=== PATIENT | female | born 1985 | race Caucasian/White ===

== ENCOUNTER → 2023-04-23 14:47 | Outpatient (REF) | payer BC, SELFPAY | LOC: PNTC 14:47 | PROVIDERS: ATTENDING PHYSICIAN Obstetrics & Gynecology | DX: Z36.0 Encounter for antenatal screening for chromosomal anomalies (principal); Z36.82 Encounter for antenatal screening for nuchal translucency | CPT/HCPCS: 76801; 76813 ==

== ENCOUNTER → 2023-05-15 13:59 | Outpatient (REF) | payer BC, SELFPAY | LOC: PNTC 13:59 | PROVIDERS: ATTENDING PHYSICIAN Obstetrics & Gynecology | DX: O99.210 Obesity complicating pregnancy, unspecified trimester (principal); O09.819 Supervision of pregnancy resulting from assisted reproductive technology, unspecified trimester | CPT/HCPCS: 76805 ==

== ENCOUNTER → 2023-06-11 15:13 | Outpatient (REF) | payer BC, SELFPAY | LOC: PNTC 15:13 | PROVIDERS: ATTENDING PHYSICIAN Obstetrics & Gynecology | DX: O99.210 Obesity complicating pregnancy, unspecified trimester (principal); O09.819 Supervision of pregnancy resulting from assisted reproductive technology, unspecified trimester | CPT/HCPCS: 76811 ==

== ENCOUNTER → 2023-07-09 13:28 | Outpatient (REF) | payer BC, SELFPAY | LOC: PNTC 13:28 | PROVIDERS: ATTENDING PHYSICIAN Obstetrics & Gynecology | DX: O99.210 Obesity complicating pregnancy, unspecified trimester (principal); O09.819 Supervision of pregnancy resulting from assisted reproductive technology, unspecified trimester | CPT/HCPCS: 76816 ==

== ENCOUNTER → 2023-07-31 15:18 | Outpatient (REF) | payer BC, SELFPAY | LOC: PNTC 15:18 | PROVIDERS: ATTENDING PHYSICIAN Obstetrics & Gynecology | DX: O36.0131 Maternal care for anti-D [Rh] antibodies, third trimester, fetus 1 (principal) | CPT/HCPCS: 36415; 86850; 86900; 86901; J2790 ==

== ENCOUNTER → 2023-08-05 13:47 | Outpatient (REF) | payer BC, SELFPAY | LOC: PNTC 13:47 | PROVIDERS: ATTENDING PHYSICIAN Obstetrics & Gynecology | DX: O09.529 Supervision of elderly multigravida, unspecified trimester (principal); O09.819 Supervision of pregnancy resulting from assisted reproductive technology, unspecified trimester | CPT/HCPCS: 76816 ==

== ENCOUNTER → 2023-09-02 15:02 | Outpatient (REF) | payer BC, SELFPAY | LOC: PNTC 15:02 | PROVIDERS: ATTENDING PHYSICIAN Obstetrics & Gynecology | DX: O09.529 Supervision of elderly multigravida, unspecified trimester (principal); O09.819 Supervision of pregnancy resulting from assisted reproductive technology, unspecified trimester | CPT/HCPCS: 76816 ==

== ENCOUNTER → 2023-09-16 16:06 | Outpatient (REF) | payer BC, SELFPAY | LOC: PNTC 16:06 | PROVIDERS: ATTENDING PHYSICIAN Obstetrics & Gynecology | DX: O09.529 Supervision of elderly multigravida, unspecified trimester (principal); O09.819 Supervision of pregnancy resulting from assisted reproductive technology, unspecified trimester | CPT/HCPCS: 76818 ==

== ENCOUNTER → 2023-09-23 15:05 | Outpatient (REF) | payer BC, SELFPAY | LOC: PNTC 15:05 | PROVIDERS: ATTENDING PHYSICIAN Obstetrics & Gynecology | DX: O09.529 Supervision of elderly multigravida, unspecified trimester (principal); O09.819 Supervision of pregnancy resulting from assisted reproductive technology, unspecified trimester | CPT/HCPCS: 59025 ==

== ENCOUNTER → 2023-09-30 14:21 | Outpatient (REF) | payer BC, SELFPAY | LOC: PNTC 14:21 | PROVIDERS: ATTENDING PHYSICIAN Obstetrics & Gynecology | DX: O09.519 Supervision of elderly primigravida, unspecified trimester (principal); O09.819 Supervision of pregnancy resulting from assisted reproductive technology, unspecified trimester; O99.210 Obesity complicating pregnancy, unspecified trimester | CPT/HCPCS: 59025; 76816 ==

== ENCOUNTER → 2023-10-07 15:05 | Outpatient (REF) | payer BC, SELFPAY | LOC: PNTC 15:05 | PROVIDERS: ATTENDING PHYSICIAN Obstetrics & Gynecology | DX: O09.519 Supervision of elderly primigravida, unspecified trimester (principal); O09.819 Supervision of pregnancy resulting from assisted reproductive technology, unspecified trimester | CPT/HCPCS: 59025; 76815 ==

== ENCOUNTER → 2023-10-14 16:52 | Outpatient (REF) | payer BC, SELFPAY | LOC: PNTC 16:52 | PROVIDERS: ATTENDING PHYSICIAN Obstetrics & Gynecology | DX: O09.529 Supervision of elderly multigravida, unspecified trimester (principal); O09.819 Supervision of pregnancy resulting from assisted reproductive technology, unspecified trimester | CPT/HCPCS: 59025 ==

== ENCOUNTER 2023-10-21 19:57 | Inpatient (IN) | payer BC, SELFPAY ==
[2023-10-21 20:08] VITALS: BMI 45.9
[2023-10-21] MEDS: LR 1000 IV (20:45)
[2023-10-21 21:13] LABS: % Basophils 0.1 % (0-2); % Eosinophils 1.7 % (0-6); % Immature Granulocytes 0.7 % (0-0.5); % Lymphocytes 13.2 % (20.5-51.1); % Monocytes 5.3 % (1.7-9.3); Absolute Eosinophils 0.2 10^3/uL (0-0.7); Absolute Immature Granulocytes 0.1 10^3/uL (0-0.05); Absolute Lymphocytes 1.3 10^3/uL (1.2-3.4); Absolute Monocytes 0.5 10^3/uL (0.1-0.6); Absolute Neutrophils 7.6 10^3/uL (1.4-6.5); Hematocrit 29.7 % (37.0-47.0); Hemoglobin 10.5 g/dL (12.0-16.0); Mean Corp Hgb Conc. 35.4 g/dL (33.0-37.0); Mean Corpuscular Hgb 30.3 pg (27.0-31.0); Mean Corpuscular Volume 85.8 fL (81.0-99.0); Mean Platelet Volume 10.9 fL (7.4-10.4); Nucleated Red Blood Cells % 0 %; Platelet Count 229 10^3/uL (130-400); Red Blood Cell Count 3.46 10^6/uL (4.20-5.40); Red Cell Dist. Width 15.2 % (11.5-14.5); White Blood Cell Count 9.6 10^3/uL (4.8-10.8)
[2023-10-21] MEDS: CYTOTEC 25 MICROGRAM VAG (21:19)
[2023-10-21 21:44] VITALS: BP 128/73
[2023-10-22] MEDS: CYTOTEC 50 MICROGRAM PO ×6 (00:53→21:42)
[2023-10-22] MEDS: SYNTHROID 50 MCG PO (06:15)
[2023-10-22] MEDS: MORPHINE SULFATE 2 MG IV ×2 (13:16→17:00)
[2023-10-23] MEDS: PITOCIN 30 UNITS/NSS 500 ML IV ×2 (01:31→21:28)
[2023-10-23] MEDS: LR 1000 IV ×3 (01:31→15:14)
[2023-10-23] MEDS: MORPHINE SULFATE 2 MG IV (02:49)
[2023-10-23] MEDS: FENTANYL/BUPIVACAINE 100 EPIDURAL ×2 (03:06→15:11)
[2023-10-23] MEDS: SUBLIMAZE 100 MCG EPIDURAL (03:06)
[2023-10-23] MEDS: SYNTHROID 50 MCG PO (06:15)
[2023-10-23] MEDS: TYLENOL 1000 MG PO (09:33)
[2023-10-23] MEDS: MOTRIN 600 MG PO (22:42)
[2023-10-24 04:30] LABS: Hematocrit 27.7 % (37.0-47.0); Hemoglobin 9.6 g/dL (12.0-16.0)
[2023-10-24] MEDS: SYNTHROID 50 MCG PO (06:13)
[2023-10-24] MEDS: MOTRIN 600 MG PO ×2 (07:36→18:27)
[2023-10-24] MEDS: FEOSOL 325 MG PO (07:37)
[2023-10-24] MEDS: PRENATAL PLUS 1 TABLET PO (07:37)
[2023-10-25] MEDS: MOTRIN 600 MG PO (04:37)
[2023-10-25] MEDS: SYNTHROID 50 MCG PO (06:13)
[2023-10-25] MEDS: FEOSOL 325 MG PO (09:19)
[2023-10-25] MEDS: SENOKOT-S 1 TABLET PO (09:19)
[2023-10-25] MEDS: PRENATAL PLUS 1 TABLET PO (09:19)
[2023-10-25 14:47] LABS: Syphilis/T. pallidum Ab Reflex Negative (Negative)
== END 2023-10-25 13:25 | disposition home or self-care (01) | DRG 807 ==
LOC: LDRP 19:57
PROVIDERS: Obstetrics & Gynecology; ADMITTING PHYSICIAN Obstetrics & Gynecology; FAMILY PHYSICIAN Family Medicine
PROC: 3E0P7VZ Introduction of Hormone into Female Reproductive, Via Natural or Artificial Opening (ICD-10-PCS; 2023-10-21)
PROC: 3E0DXGC Introduction of Other Therapeutic Substance into Mouth and Pharynx, External Approach (ICD-10-PCS; 2023-10-22)
PROC: 0U7C7ZZ Dilation of Cervix, Via Natural or Artificial Opening (ICD-10-PCS; 2023-10-22)
PROC: 0KQM0ZZ Repair Perineum Muscle, Open Approach (ICD-10-PCS; 2023-10-23)
PROC: 10907ZC Drainage of Amniotic Fluid, Therapeutic from Products of Conception, Via Natural or Artificial Opening (ICD-10-PCS; 2023-10-23)
PROC: 10E0XZZ Delivery of Products of Conception, External Approach (ICD-10-PCS; 2023-10-23)
DX: O99.284 Endocrine, nutritional and metabolic diseases complicating childbirth (principal); Z37.0 Single live birth; E03.9 Hypothyroidism, unspecified; Z3A.39 39 weeks gestation of pregnancy; O70.1 Second degree perineal laceration during delivery; O99.214 Obesity complicating childbirth; E66.01 Morbid (severe) obesity due to excess calories; K21.9 Gastro-esophageal reflux disease without esophagitis; G43.909 Migraine, unspecified, not intractable, without status migrainosus; O99.354 Diseases of the nervous system complicating childbirth; Z82.49 Family history of ischemic heart disease and other diseases of the circulatory system; Z79.890 Hormone replacement therapy; O90.81 Anemia of the puerperium; D64.9 Anemia, unspecified
CPT/HCPCS: 85014; 85018; 85025; 86780; 86850; 86900; 86901